=== PATIENT | male | born 1990 | race African-American/Black ===

== ENCOUNTER 2019-03-29 17:19 | Emergency (ER) | payer MEDICAID ==
[~2019-03-29] VITALS: Ht 185.4 cm; Wt 81.4 kg
[2019-03-29] MEDS ORDERED: IBUPROFEN 800 MG TABLET PO ONE (18:30)
[2019-03-29 18:46] VITALS: BP 120/71
== END 2019-03-29 18:58 | disposition home or self-care (01) ==
LOC: EMS 17:19
DX: J32.9 Chronic sinusitis, unspecified (principal); K08.89 Other specified disorders of teeth and supporting structures; J45.909 Unspecified asthma, uncomplicated